=== PATIENT | female | born 1960 | race Caucasian/White ===

== ENCOUNTER 2020-03-02 16:02 | Emergency (ER) | payer OTHER, SELFPAY ==
[2020-03-02 16:03] VITALS: BP 146/99; PULSE 63; RESP 16; TEMP 36.2; O2SAT 97
[2020-03-02 16:05] VITALS: BP 146/99; PULSE 63; RESP 16; TEMP 36.2; O2SAT 97; BMI 36.6
--- NOTE | 2020-03-02 16:22 | ED.VIS.GEN ---
History of Present Illness Chief Complaint: Bite Informant: Patient Onset: Weeks - 1 week Current Severity: Mild Maximum Severity: Mild Narrative: Patient presents with scabs to the left wrist that she has noted for the past week. She states a friend told her it looked with a bat bite and they have been fighting bats in their home. She was advised by her PCPs office she should come in for the rabies vaccine. Patient denies any other symptoms other than the area does itch. Past Medical History Primary Care Physician: Benedict Crews MD [Primary Care Provider] - Past Medical History: None Lives: Spouse/ Significant Other Review of Systems General: Denies: Chills, Fever Eyes: Denies: Visual changes - bilaterally ENT: Denies: Bilateral ear pain Cardiovascular: Denies: Chest pain Respiratory: Denies: Dyspnea, Cough, - Gastrointestinal: Denies: Abdominal pain, Nausea, Diarrhea Genitourinary: Denies: Dysuria Musculoskeletal: Denies: Extremity Pain Skin: Reports: Wounds Neurological: Denies: Headache Hematologic: Denies: Easy bruising, Easy bleeding Allergy: Denies: Uticaria Physical Exam Vital Signs/Narrative: Vital Signs Temp Pulse Resp BP Pulse Ox 03/02/20 16:05 97.1 F L 63 16 146/99 H 97 03/02/20 16:03 97.1 F L 63 16 146/99 H 97 Inital Vital Signs reviewed: Yes General: Well nourished, Well developed Head: Normocephalic ENT: Moist mucous membranes Cardiovascular: Regular rate, Regular rhythm Respiratory: No distress, CTA bilaterally Abdomen: Soft, Nontender Extremities: - - 4 small scabbed lesions to the ulnar aspect of the left wrist. No surrounding erythema or sign of infection. Full range of motion at the wrist joint without difficulty. Neurological: Alert, Oriented x3, Normal Strength, Normal Sensation Psychological: Normal affect Diagnostic/Tx/Re-eval - Medical Decision Making Rabies immunoglobulin and vaccine will be given here. She will return on days 3, 7, and 14 for additional shots. ED Disposition - Plan for ED Patient: Disposition: Home or Assisted Living Diagnosis: Bat bite wound Referrals: Benedict Crews MD [Primary Care Provider] - Additional Instructions: As discussed, return on days 3, 7, and 14 for completion of the rabies vaccine
[2020-03-02] MEDS: Rabies Immune Globulin/PF 300 UNIT/ML, 5 ML VIAL 1500 UNIT IM (17:02)
[2020-03-02] MEDS: Rabies Immune Globulin/PF 300 UNIT/ML, 1 ML VIAL 440 UNIT IM (17:06)
[2020-03-02] MEDS: Rabies Vaccine,Human Diploid 2.5 UNITS Vial IM (17:07)
== END 2020-03-02 17:59 | disposition home or self-care (01) ==
PROVIDERS: Emergency Provider Emergency Medicine; PCP Family Medicine
DX: S61.552A Open bite of left wrist, initial encounter (principal); W55.81XA Bitten by other mammals, initial encounter; Z23 Encounter for immunization
CPT/HCPCS: 90375; 90675; 96372; 99283

== ENCOUNTER 2020-03-05 18:13 | Emergency (ER) | payer OTHER, SELFPAY ==
[2020-03-05] MEDS: Rabies Vaccine,Human Diploid 2.5 UNITS Vial IM (18:38)
[2020-03-05 18:54] VITALS: BP 132/78; PULSE 72; RESP 18; TEMP 36.8; O2SAT 99
== END 2020-03-05 18:56 | disposition home or self-care (01) ==
LOC: ED 18:53
PROVIDERS: Emergency Provider Emergency Medicine; PCP Family Medicine
DX: Z29.14 Encounter for prophylactic rabies immune globulin (principal)
CPT/HCPCS: 90675; 96372

== ENCOUNTER 2020-03-09 16:29 | Outpatient (CLI) | payer OTHER, SELFPAY ==
[2020-03-09 16:43] VITALS: PULSE 75; RESP 16; TEMP 35.7; O2SAT 99; BMI 34.3
[2020-03-09] MEDS: Rabies Vaccine,Human Diploid 2.5 UNITS Vial IM (16:46)
== END 2020-03-09 17:00 | disposition home or self-care (01) ==
LOC: ED 17:05
PROVIDERS: PCP Family Medicine
DX: Z20.3 Contact with and (suspected) exposure to rabies (principal)
CPT/HCPCS: 90675; 96372

== ENCOUNTER 2020-03-16 15:42 | Outpatient (CLI) | payer OTHER, SELFPAY ==
[2020-03-16 15:45] VITALS: BP 138/74; PULSE 72; RESP 15; TEMP 35.9; O2SAT 98; BMI 34.3
[2020-03-16] MEDS: Rabies Vaccine,Human Diploid 2.5 UNITS Vial IM (16:44)
== END 2020-03-16 16:52 | disposition home or self-care (01) ==
LOC: ED 16:54
PROVIDERS: PCP Family Medicine
DX: Z29.14 Encounter for prophylactic rabies immune globulin (principal)
CPT/HCPCS: 90675; 96372